=== PATIENT | female | born 1965 | race Caucasian/White ===

== ENCOUNTER 2017-12-31 10:29 | Inpatient (IN) ==
--- NOTE | 2017-12-30 21:47 | Discharge Summary ---
<Diego Urbina - Last Filed: 12/31/17 12:10> Orders not resulted at time of discharge: Pending orders 12/31/17 00:01 XR knee RT 1-2V [XR] Routine H/H [Hemoglobin and Hematocrit] [HEME] Routine Date of Encounter: 12/31/17 - Discharge Diagnosis (1) Obesity (BMI 35.0-39.9 without comorbidity) Priority: Secondary Status: Chronic (2) Arthritis of knee, right Priority: Primary Status: Chronic (3) Status post total knee replacement, right Priority: Primary Status: Acute (4) CKD (chronic kidney disease) stage 3, GFR 30-59 ml/min Priority: Secondary Status: Chronic (5) GERD (gastroesophageal reflux disease) Priority: Secondary Status: Chronic Qualifiers: Esophagitis presence: esophagitis presence not specified Qualified Code(s) : K21.9 - Gastro-esophageal reflux disease without esophagitis (6) HTN (hypertension) Priority: Secondary Status: Chronic Qualifiers: Hypertension type: essential hypertension Qualified Code(s): I10 - Essential (primary) hypertension - Hospital Course Hospital course: Ms. Reyes is a 52 year old female - Time Spent with Patient Total time spent providing and/or coordinating discharge services: - Discharge Medications Home Medications: Aspirin Enteric Coated [Aspirin EC] 325 mg PO BID #20 tablet. 12/30/17 [Rx] OxyCODONE Immed Rel [Roxicodone 5 MG] 5 mg PO Q6HR PRN 7 Days #28 tablet [Rx] BuPROPion XL (24 HR) [Wellbutrin Xl] 150 mg PO DAILY 12/31/17 [History] Ergocalciferol (VITAMIN D2) [Vitamin D2] 50,000 unit PO FR 12/31/17 [History] Losartan Potassium [Cozaar] 50 mg PO DAILY 12/31/17 [History] Omeprazole Magnesium [Prilosec Otc] 20 mg PO HS 12/31/17 [History] Allergies/Adverse Reactions: 3 Allergy/AdvReac Type Severity Reaction Status Date / Time Sulfa (Sulfonamide Allergy Hives Verified 12/31/17 11:46 Antibiotics) Primary care physician: Arcadio Welsh MD - Patient Status Disposition: Home Health Service Condition: Good - Discharge Instructions Follow Up With: Diego Urbina MD [Partnered Physician] - 01/30/18 4:50 pm Evette Devlin PAC [Physician Visual Training Aide] - 01/18/18 9:00 am Arcadio Welsh MD [Primary Care Provider] - 01/09/18 10:00 am Additional Instructions: Discharge Instructions: Total Knee Replacement Please call [facility] ([phone]), your Primary Care Physician, or report to the Emergency Room if you have any of the following symptoms: Nausea, vomiting, fever greater that 101.5, swelling, chest pain, shortness of breath, increased pain/redness/drainage/odor for your incision site, numbness/ tingling, or any other concerning symptoms. ACTIVITY:Weight-bearing as tolerated. You may progress off support (crutches or walker) as tolerated. Incentive Spirometer 10 times an hour. MEDICATIONS: Upon discharge resume your home medications. Take all the medications as prescribed. Take a stool softener if taking narcotic pain medications. Stool softeners are only effective if you drink enough fluids. Drink 6-8 glass of water or fluids a day, unless this is not allowed for another health problem. Despite using stool softeners, if you haven't had a bowel movement in 3 days, please switch to a gentle laxative. Gentle laxatives are sold over the counter. You should have a bowel movement within 24 hours, if not call the office. You will be discharged from the hospital with a prescription for pain medication. You are encouraged to decrease the use of narcotic pain medication as tolerated. Should you require a refill, please call the office. [facility] prescribes narcotic pain medication for only 4-6 weeks after surgery. If you require pain medication beyond this time period, you may be referred to your Primary Care Physician or to the Pain Clinic for further evaluation. Plan ahead for refills on pain medication as many narcotics either need to be picked up at the office or mailed. It is best to call 48-72 hours in advance of needing a prescription refill so you don't run out of medication. To help control the post-operative pain, you may take NSAIDs (Aleve,Advil, Motrin, Ibuprofen, Naprosyn) or Tylenol as prescribed on the bottle in addition to the pain medication. ANTICOAGULATION (blood thinners): Continue your Aspirin, Lovenox or Coumadin as prescribed to help prevent a blood clot in the leg or in the lungs. As long as your incision remains dry and you tolerate the NSAIDs (Aleve, Advil, Motrin, ibuprofen, naprosyn), it is OK to use the NSAIDS while you are taking your anticoagulation medication. Should your incision start to drain, stop the NSAID and contact our office. Common symptoms of blood clot in the legs include: localized pain, swelling, calf tenderness, redness or discoloration of the skin. Blood clot in the lung symptoms include: shortness of breath, rapid pulse, sweating, and chest pain that worsens with deep breathing, coughing up blood, lightheadedness, feelings of anxiety. If you experience any of these symptoms notify your physician immediately, go to the emergency room, or if having trouble breathing, call 911. WOUND CARE: Leave the dressing on for 7 to 10days. You may change the dressing if it becomes saturated greater than 50%. Do not get the dressing wet at anytime. Wash your hands with antibacterial soap, rinse and dry prior to any wound care. If you have justen the visiting nurse or rehab facility can remove the stapes 10-14 days after surgery and place steri-strips across the wound. Leave the steri-strips in place until they fall off on their won. You may let water from the shower run on top of the steri-strips. If you do not have a visiting nurse or rehab facility, you will need to return to the office at 10-14 days for the justen to be removed. If you have itching or redness around the dressing call the office. FOLLOW-UP: Please follow up with your surgeon in the orthopedic clinic in 4 weeks from the day of surgery. If you have justen that need to be removed, you will need to come back to the office in 10-14 days from the day of surgery. <Evette Devlin - Last Filed: 01/02/18 15:34> - NOTES TO OUTPATIENT PROVIDER Notes to Outpatient Provider: Acute Blood loss anemia Date of Encounter: 01/02/18 Time of Encounter: 15:29 - Discharge Diagnosis (1) Status post total knee replacement, right Priority: Primary Status: Acute Comments: Opsite dressing, leave intact until first post-operative visit. If dressing becomes >50% saturated, contact office, remove dressing and place appropriate dressing in its place. Do not allow for dressing to get wet. Zipline in place, plan to remove at post-operative day #14-16. Total Joint Precautions x 6 weeks Apply cold therapy wrap 3-6x/day for 20 minutes at a time. Encourage ambulation throughout the day Use Incentive spirometer 10x/hour. Elevate affected extremity above heart as tolerated. Brace: Wear knee immobilizer at night until first postoperative appt. (2) Arthritis of knee, right Priority: Primary Status: Chronic (3) GERD (gastroesophageal reflux disease) Priority: Secondary Status: Chronic Qualifiers: Esophagitis presence: esophagitis presence not specified Qualified Code(s) : K21.9 - Gastro-esophageal reflux disease without esophagitis (4) HTN (hypertension) Priority: Secondary Status: Chronic Qualifiers: Hypertension type: essential hypertension Qualified Code(s): I10 - Essential (primary) hypertension (5) Obesity Priority: Secondary Status: Chronic Qualifiers: Obesity type: unspecified obesity type Obesity classification: adult class 2 (BMI 35 - 39.9) Serious obesity comorbidity presence: without serious comorbidity Body mass index: BMI 36.0-36.9 Qualified Code(s): E66.9 - Obesity, unspecified; Z68.36 - Body mass index (BMI) 36.0-36.9, adult (6) CKD (chronic kidney disease) stage 3, GFR 30-59 ml/min Priority: Secondary Status: Chronic (7) Acute blood loss anemia Priority: Secondary Status: Acute Comments: asympto - Hospital Course Hospital course: Ms. Reyes is a 52 year old female status post Right TKR. Patient had uneventful postoperative course, acute blood loss anemia - asympto. Stable for discharge. Patient seen at bedside, without complaints. A&O x 3 Afebrile, vital signs stable. Vital Signs Temp Pulse Resp BP Pulse Ox 01/02/18 10:31 98.3 F 82 16 129/70 98 01/02/18 06:55 98.1 F 91 16 118/68 98 01/02/18 03:17 97.9 F 88 19 120/79 98 01/01/18 23:52 97.6 F 102 18 116/75 100 01/01/18 20:07 98.1 F 86 20 132/80 97 Intake and Output 01/01/18 01/02/18 01/02/18 23:59 07:59 15:59 Intake Total 690 / 690 360 / 360 Output Total 400 / 400 900 / 900 500 / 500 Balance 290 / 290 -900 / -900 -140 / -140 Intake: Oral 690 / 690 360 / 360 Output: Urine 400 / 400 900 / 900 500 / 500 Other: Meal Dinner Breakfast Percent of Meal Consumed 65% 100% Weight 120.9 kg Labs reviewed. H/H - stable, asymptomatic Abnormal Labs 12/31/17 01/01/18 01/01/18 15:25 01:24 01:24 Hgb 11.0 L 10.5 L Hct 35.0 L 33.5 L Sodium 134 L Glucose 170 H Calcium 8.4 L 01/02/18 01/02/18 01:54 01:54 Hgb 8.8 L D Hct 28.1 L Sodium Glucose 128 H Calcium 8.4 L Pain control: adequate Participating in PT. All questions and concerns addressed. Educated on use of incentive spirometer. Encouraged ambulation and proper hydration. Patient educated on post-operative restrictions and post-operative care. Assessment and plan: Continue with postoperative care Discharge plan: Home with HH , discharge today *HH to follow up on Anemia with repeat H/H this week. Recommend follow up with PCP. - Time Spent with Patient Total time spent providing and/or coordinating discharge services: Date of admission: 12/31 Primary care physician: Arcadio Welsh MD Discharging clinician: Evette Devlin Anticipated date of discharge: 01/02/18 - Patient Status Functional capacity at discharge: uses cane/walker Overall status at discharge: patient is progressing back to baseline
--- NOTE | 2017-12-31 09:11 | Anesthesia Evaluation PreOp ---
Date of Encounter: 12/31/17 Time of Encounter: 11:21 - Past History Planned Operation: Right Total Knee Arthroplasty Cardiac History: HTN Pulmonary History: Denies Any Significant HX NET DEVELOPMENT MANAGER History: Denies Any Significant HX Other Medical History: GERD Anesthesia History: No Prior Anesthetic Complications, Past Anesthesia Alcohol Use: none Drug use: none Medications and Allergies Lisinopril 03/25/17 [History] Wellbutrin 03/25/17 [History] Aspirin Enteric Coated [Aspirin EC] 325 mg PO BID #20 tablet.dr 12/30/17 [Rx] OxyCODONE Immed Rel [Roxicodone 5 MG] 5 mg PO Q6HR PRN 7 Days #28 tablet [Rx] 3 Allergy/AdvReac Type Severity Reaction Status Date / Time Sulfa (Sulfonamide Allergy Hives Verified 12/18/17 11:28 Antibiotics) - Meds/Allergy Pre-op Review Medications Reviewed: Yes Allergies Reviewed: Yes Beta Blockers on Current Med List: No Anesthesia Results - Labs Laboratory Tests 12/18/17 12/18/17 12/18/17 11:45 11:45 11:45 WBC 6.2 Hgb 12.9 Hct 40.7 Plt Count 395 PT 12.1 INR 1.1 APTT 35.0 Sodium 136 Potassium 3.9 BUN 13 Creatinine 1.15 - Imaging EKG: report reviewed (03/09/2017 SINUS RHYTHM NONSPECIFIC T-WAVE ABNORMALITY) Anesthesia Exam O2 Sat Height 1.78 m Height 1.78 m Height 1.78 m Height 1.68 m Weight 115.666 kg Weight 115.666 kg Weight 115.666 kg Weight 115.666 kg O2 Sat by Pulse Oximetry 99 Vital Signs Temp Pulse Resp BP Pulse Ox 97.9 F 88 18 135/88 99 12/31/17 10:56 12/31/17 10:56 12/31/17 10:56 12/31/17 10:56 12/31/17 10:56 Height: 5'10" Weight: 255 lbs NPO (# of Hours): 8 Pain Scale: 0 Pain Scale Used: Numeric (1 - 10) - HEENT Pupil (Motor): EOMI Mallampati: III Teeth: Normal, Prosthesis (implant right lower molar) Oral Opening: Greater than 3 - NET DEVELOPMENT MANAGER LOC: Oriented NET DEVELOPMENT MANAGER Motor: Normal RUE, Normal LUE, Normal RLE, Normal LLE, Normal Face NET DEVELOPMENT MANAGER Sensory: Normal: RUE, LUE, RLE, LLE, Face - Cardiac Rhythm: Regular Murmur: None - Pulmonary Breath Sounds: bilateral Clear Respiratory Effort: Symmetrical Anesthesia Assess/Plan ASA Score: 2 Modified Millstone Scale for Level of Consciousness: Cooperative, oriented, and tranquil Anesthetic Plan: General, Regional Monitoring Plan: Standard Monitors Recovery Plan: PACU
[2017-12-31] MEDS ORDERED: CeFAZolin Syr 2,000MG/20 ML 2,000 MG/20 ML SYRINGE IVPB ONE (10:47)
--- NOTE | 2017-12-31 10:54 | History & Physical Report ---
Date of Encounter: 12/31/17 Time of Encounter: 10:54 24 Hour HP Update - Instructions Instructions: If the History and Physical is less than 30 days old and was completed prior to A.M. admission and or procedure and has NOT been updated on calendar day of procedure please complete this update prior to performing procedure. - Update Patient reports changes in Medical Condition: No Changes in examination, assessment, or condition: No Changes in Medication: No Preop tests/diagnostics Reviewed: Yes Surgery Remains Indicated: Yes Consent for Planned Operative Procedure(s) Verified: Yes - Pre-Operative Checklist Preoperative Checklist Indicated: No Prophylactic Antibiotic Ordered: Yes Is VTE Prophylaxis Indicated?: Yes
[2017-12-31] MEDS ORDERED: Ringers Solution, Lactated 1,000 ML IVC SCH ×2 (11:00→15:59)
--- NOTE | 2017-12-31 11:09 | History & Physical Report ---
Date of Encounter: 12/31/17 Time of Encounter: 11:09 24 Hour HP Update - Instructions Instructions: If the History and Physical is less than 30 days old and was completed prior to A.M. admission and or procedure and has NOT been updated on calendar day of procedure please complete this update prior to performing procedure. - Update Patient reports changes in Medical Condition: No Changes in examination, assessment, or condition: No Changes in Medication: No Preop tests/diagnostics Reviewed: Yes Surgery Remains Indicated: Yes Consent for Planned Operative Procedure(s) Verified: Yes - Pre-Operative Checklist Preoperative Checklist Indicated: No Prophylactic Antibiotic Ordered: Yes Is VTE Prophylaxis Indicated?: Yes
[2017-12-31] MEDS ORDERED: *HR* FentaNYL (PF) 100 MCG/2 ML VIAL ONE ×2 (11:23→13:41)
[2017-12-31] MEDS ORDERED: *HR* Propofol 200 MG/20 ML VIAL IVP ONE (11:24)
[2017-12-31] MEDS ORDERED: *HR* Midazolam HCl 2 MG/2 ML VIAL ONE (11:24)
[2017-12-31] MEDS ORDERED: Lidocaine -MPF 2% 2 ML VIAL ONE (11:40)
[2017-12-31] MEDS ORDERED: Bupivacaine/Clonidine Syringe 1 EACH SYRINGE ONE (12:20)
[2017-12-31] MEDS ORDERED: ROPIVACAINE HCL/PF 0.5% 30 ML VIAL ONE (12:20)
--- NOTE | 2017-12-31 12:43 | Anesthesia Procedures ---
Date of Encounter: 12/31/17 Time of Encounter: 12:41 Procedures: Anesthesia - Nerve Block Procedure Date: 12/31/17 Time: 12:41 Pre-op Diagnosis: arthris knee Surgical Procedure: TKA R Checklist: Correct Patient Identifier Correct side: Right Blood Thinner: No Monitor Applied: EKG, BP, Pulse Oximetry Supplemental Oxygen via Nasal Cannula (L/min): 3 Sedation: Versed (mg): 2 Sedation: Fentanyl (mcg): 100 Indication: Post Op Analgesia Pre-op Neuro Deficits: No Block Type: Other (adductor, IPAK) Catheter placed: No Sterile Technique: Yes Ultrasound used: Yes Anatomy identified: Yes Visual spread of Local: Yes Neuro Stimulation: No Blood on Needle Aspiration: No Smooth Injection of Local: Yes Pain with Injection of Local: No Prep: Chlorhexadine Needle: 21 x 100 mm Stimuplex Local: 0.25% Bupivicaine w/Clonidine 20 mcg/cc, Ropivacaine (o.5% 30cc) Volume (cc): 20 30 Number of Attempts: 1 Complications: None/effective block Vitals: Vital Signs/O2 Sat, Most Current Temp Pulse Resp BP Pulse Ox 97.9 F 81 16 127/86 98 12/31/17 10:56 12/31/17 12:34 12/31/17 12:34 12/31/17 12:34 12/31/17 12:34 Comments: aseptic, robert well, VSS
[2017-12-31] MEDS ORDERED: Ethanol\\Acetic Acid\\Na Ace\\Ben 1,000 ML IRRIG.SOLN IR ONE (12:52)
[2017-12-31] MEDS ORDERED: Acetaminophen IV 1,000 MG/100 ML INFUS..BTL ONE (12:54)
[2017-12-31] MEDS ORDERED: *HR* Promethazine 25 MG/ML VIAL IVP PRN (12:58)
[2017-12-31] MEDS ORDERED: *HR* OxyCODONE Immed Rel 5 MG TABLET PO PRN (12:58)
[2017-12-31] MEDS ORDERED: *HR* Labetalol 20 MG/4 ML SYRINGE IVP PRN (12:58)
[2017-12-31] MEDS ORDERED: *HR* HYDROmorphone 2 MG TABLET PO PRN (12:58)
[2017-12-31] MEDS ORDERED: *HR* PHENYLEPHRINE 1,000 MCG/10 ML SYRINGE IVP ONE (13:30)
[2017-12-31] MEDS ORDERED: Ondansetron 4 MG/2 ML VIAL ONE (13:33)
[2017-12-31] MEDS ORDERED: Ketorolac 30 MG/ML VIAL ONE (13:33)
[2017-12-31] MEDS ORDERED: Dexamethasone 4 MG/ML VIAL ONE (13:33)
[2017-12-31] MEDS ORDERED: EPHEDrine 50 MG/ML VIAL ONE (13:45)
--- NOTE | 2017-12-31 14:16 | Orthopedic Operative Note ---
Date of procedure: 12/31/17 Pre-op diagnosis: Right total knee arthritis Post-op diagnosis: same Procedure: Procedure: Right robotic-assisted Total knee replacement Estimated blood loss: 200 cc Hardware: Metal and polyethylene replacement. Malinda Femur: 3 Tibia:4 TS insert: 13 Patella: 36 Exam Under anesthesia: 2 degree flexion contracture 9 degrees varus as calculated by the robot full flexion and no instability Procedural Notes: Grade 4 arthritic changes all 3 compartments. Operative procedure: The patient was brought to the operating room and placed on the operating room table. After general anesthesia was administered the operative knee was examined. Findings were noted in the exam under anesthesia. The operative extremity was prepped and draped in sterile surgical fashion. The patient received IV antibiotics prior to skin incision. A standard midline incision was made centered over the patella. The incision was made through the skin and subcutaneous tissue. A medial parapatellar tendon approach was performed. Care was taken to preserve tissue along the medial aspect of the patella. And to protect the patella tendon. The deep MCL was released off the medial tibia. The infra patella fat pad was excised. The patella was everted and cut was made at the level of the insertion of the quadriceps and patella tendon. The patella was sized the guide was seated and the lug holes are drilled. Knee was brought into flexion. Patient noted to have grade 4 arthritic changes all 3 compartments. Steinmann pins were placed in the tibia and the femur for the tibial and femoral arrays respectively. Checkpoints were also placed in the tibia and the femur for calculation purposes. The knee including the femur and the tibial registered. Osteophytes, ACL and PCL were excised at this point. Extension and flexion were assessed with a valgus stress components were adjusted on the computer to balance the knee. Femoral cuts were made first with robotic assistance, these included the anterior cut posterior cuts chamfer cuts. Tibial cut was then performed with robotic assistance as well. Bone fragments were removed, as well as the medial and lateral meniscus. The size 3 femoral guide was seated box cut was made lug holes are drilled. The size 4 tibial tray was seated and prepared with the fin cutter. Trial reduction with the 13 TS Rita revealed extension of 0 degree and 5 degree varus full flexion. No varus valgus instability. Trial reduction revealed excellent patella tracking. All trial components were removed all bony surfaces were irrigated. The Tibia was seated followed by the femur, The selected Rita size was seated and secured patella. Patient had similar findings for motion and stability. The knee was closed by the PA. The knee was then irrigated out with 2 L of pulse irrigation. The extensor mechanism was closed with #2 FiberWire suture and #2 PDS suture. The subcutaneous tissue was then irrigated and closed deep with #1 PDS suture superficially with 0 PDS suture and skin was closed with zip tie The patient was then placed in a sterile dressing and a postoperative brace extubated and transferred to recovery room in stable condition. Anesthesia: GETA Surgeon: Diego Urbina Was there an medical assistant present: No Estimated blood loss (cc): 200 Condition: stable Disposition: PACU
[2017-12-31] MEDS: *HR* HYDROmorphone (PF) 1 MG/ML SYRINGE IVP PRN ×4 (14:51→15:15)
--- NOTE | 2017-12-31 15:33 | Anesthesia Evaluation Post Op ---
Date of Encounter: 12/31/17 Time of Encounter: 15:32 - Vital Signs Vital Signs: Vital Signs/O2 Sat/Glucose, Most Current Temp Pulse Resp BP Pulse Ox 12/31/17 15:27 80 14 133/66 95 12/31/17 15:17 97.8 F 67 20 120/77 95 12/31/17 15:07 79 20 119/71 96 12/31/17 14:57 70 20 110/69 92 12/31/17 14:47 97.2 F L 81 22 116/80 95 12/31/17 12:57 90 16 122/78 99 12/31/17 12:44 82 16 119/76 99 12/31/17 12:34 81 16 127/86 98 12/31/17 12:22 80 18 142/101 99 - Lungs Lungs: Clear Ascult./Percussion - Airway Airway: Non-obstructed - Cardiovascular Regular Rate, Baseline Rhythm - Mental Status Mental Status: Alert & Oriented, Answers Appropriately - Pain Pain Scale: 4 Pain Scale used: Numeric (1 - 10) - Nausea Vomiting Nausea Vomiting: Not Present - Hydration Hydration: Ice chips, Able to void - Discharge PostOp Status: Transfer Patient to floor
[2017-12-31] MEDS ORDERED: MOM Conc 10 ML UD.LIQ PO PRN (15:59)
[2017-12-31] MEDS ORDERED: Naloxone 0.4 MG/ML INJ IVP PRN (15:59)
[2017-12-31] MEDS ORDERED: *HR* OxyCODONE/APAP 5/325 TABLET PO PRN (15:59)
[2017-12-31] MEDS ORDERED: Ondansetron 4 MG/2 ML VIAL IVP PRN (15:59)
[2017-12-31] MEDS ORDERED: Sennosides 8.6 MG TABLET PO PRN (15:59)
[2017-12-31] MEDS ORDERED: Temazepam 15 MG CAPSULE PO PRN (15:59)
[2017-12-31] MEDS ORDERED: traMADol 50 MG TABLET PO PRN (15:59)
[2017-12-31] MEDS: *HR* Enoxaparin 30 MG/0.3 ML SYRINGE SQ SCH (17:10)
[2017-12-31] MEDS ORDERED: *HR* Enoxaparin 30 MG/0.3 ML SYRINGE SQ SCH (18:00)
[2018-01-01 01:53] LABS: Hematocrit 33.5 % (35.3-44.9); Hemoglobin 10.5 g/dL (11.5-15.4)
[2018-01-01 02:16] LABS: BUN/Creatinine Ratio 15 (6-26); Blood Urea Nitrogen 14 mg/dL (6-20); Calcium 8.4 mg/dL (8.6-10.3); Carbon Dioxide 23 mEq/L (23-29); Chloride 102 mEq/L (98-107); Glucose 170 mg/dL (70-105); Osmolality,Calculated 282 (280-300); Potassium 4.7 mEq/L (3.5-5.1); Sodium 134 mEq/L (136-145); eGFR For Non-African Americans > 60 (> 60)
[2018-01-01] MEDS: *HR* OxyCODONE Immed Rel 5 MG TABLET PO PRN ×5 (05:15→22:40)
[2018-01-01] MEDS: *HR* Enoxaparin 30 MG/0.3 ML SYRINGE SQ SCH ×2 (05:15→18:32)
--- NOTE | 2018-01-01 06:43 | Orthopedics Progress Note ---
Date of Encounter: 01/01/18 Time of Encounter: 06:43 - Assessment and Plan (1) Obesity (BMI 35.0-39.9 without comorbidity) Current Visit: Yes Status: Chronic (2) Arthritis of knee, right Current Visit: No Status: Chronic (3) Status post total knee replacement, right Current Visit: No Status: Acute (4) CKD (chronic kidney disease) stage 3, GFR 30-59 ml/min Current Visit: No Status: Chronic (5) GERD (gastroesophageal reflux disease) Current Visit: No Status: Chronic Qualifiers: Esophagitis presence: esophagitis presence not specified Qualified Code(s) : K21.9 - Gastro-esophageal reflux disease without esophagitis (6) HTN (hypertension) Current Visit: No Status: Chronic Qualifiers: Hypertension type: essential hypertension Qualified Code(s): I10 - Essential (primary) hypertension Subjective Interval history: Patient was seen this morning doing well without complaints. Afebrile vital signs stable. Operative extremity: Neurovascularly intact Dressing clean dry and intact Calves nontender Assessment and plan: Continue with postoperative care Hematocrit 33 Objective Vital signs: Vital Signs Temp Pulse Resp BP Pulse Ox 01/01/18 03:58 97.3 F L 92 16 126/80 98 12/31/17 23:50 97.6 F 74 16 108/75 99 12/31/17 20:50 98 12/31/17 18:59 97.7 F 88 16 117/74 98 12/31/17 18:10 97.7 F 88 16 128/83 93 12/31/17 17:10 97.8 F 93 16 126/86 98 12/31/17 16:40 97.8 F 73 18 116/74 97 12/31/17 15:54 97.5 F L 71 18 142/85 99 12/31/17 15:27 97.8 F 80 14 133/66 95 12/31/17 15:17 97.8 F 67 20 120/77 95 12/31/17 15:07 79 20 119/71 96 12/31/17 14:57 70 20 110/69 92 12/31/17 14:47 97.2 F L 81 22 116/80 95 12/31/17 12:57 90 16 122/78 99 12/31/17 12:44 82 16 119/76 99 12/31/17 12:34 81 16 127/86 98 12/31/17 12:22 80 18 142/101 99 12/31/17 10:56 97.9 F 88 18 135/88 99 Intake and Output 12/31/17 12/31/17 01/01/18 15:59 23:59 07:59 Intake Total 20 / 20 340 / 340 100 / 100 Output Total 200 / 200 300 / 300 Balance -180 / -180 40 / 40 100 / 100 Intake: IV Fluids 20 / 20 100 / 100 100 / 100 Ancef Syringe 2,000 MG/20 ML 2, 20 / 20 000 mg In 20 ml @ 200 mls/hr IVPB PREOP ONE Rx#:[id number] Ancef 2,000 MG In 0.9 % Sodium 100 / 100 100 / 100 Chloride 100 ML @ 200 mls/hr IVPB Q8H [facility] Rx#:[id number] Oral 240 / 240 Output: Urine 300 / 300 Estimated Blood Loss 200 / 200 Other: Meal Dinner Percent of Meal Consumed 100% Weight 115.666 kg 120.8 kg Patient Weight 01/01/18 23:59 Weight 120.8 kg - Labs CBC & BMP: 01/01/18 01:24 01/01/18 01:24 Labs: Abnormal lab results Hgb 10.5 g/dL (11.5-15.4) L 01/01/18 01:24 Hct 33.5 % (35.3-44.9) L 01/01/18 01:24 Sodium 134 mEq/L (136-145) L 01/01/18 01:24 Glucose 170 mg/dL (70-105) H 01/01/18 01:24 Calcium 8.4 mg/dL (8.6-10.3) L 01/01/18 01:24 - VTE Documentation of Mechanical Device: Venous foot pump, device Consult Discharge Plan - Plan Referrals: Arcadio Welsh MD [Primary Care Provider] -
[2018-01-01] MEDS: BuPROPion XL (24 HR) 150 MG TABLET PO SCH (09:26)
--- NOTE | 2018-01-01 16:39 | Event Note ---
Date of Encounter: 01/01/18 Time of Encounter: 16:37 PCR - POD#1 - Right TKR Robo 12/31 Patient seen at bedside, without complaints. A&O x 3 Afebrile, vital signs stable. Labs reviewed. H/H - stable, asymptomatic Pain control: adequate Participating in PT. All questions and concerns addressed. Educated on use of incentive spirometer. Encouraged ambulation and proper hydration. Patient educated on post-operative restrictions and post-operative care. Assessment and plan: Continue with postoperative care Discharge plan: Home in AM with Short CBC 01/01/18 Range/Units 01:24 Hgb 10.5 L (11.5-15.4) g/dL Hct 33.5 L (35.3-44.9) % BMP 01/01/18 Range/Units 01:24 Sodium 134 L (136-145) mEq/L Potassium 4.7 (3.5-5.1) mEq/L Chloride 102 (98-107) mEq/L Carbon Dioxide 23 (23-29) mEq/L BUN 14 (6-20) mg/dL Creatinine 0.95 (0.60-1.20) mg/dL Glucose 170 H (70-105) mg/dL Calcium 8.4 L (8.6-10.3) mg/dL Vital Signs Temp Pulse Resp BP Pulse Ox 01/01/18 15:11 98.0 F 88 16 119/79 100 01/01/18 11:09 98.0 F 82 18 121/78 100 01/01/18 07:35 97.9 F 76 17 120/79 100 01/01/18 03:58 97.3 F L 92 16 126/80 98 12/31/17 23:50 97.6 F 74 16 108/75 99 12/31/17 20:50 98 12/31/17 18:59 97.7 F 88 16 117/74 98 12/31/17 18:10 97.7 F 88 16 128/83 93 12/31/17 17:10 97.8 F 93 16 126/86 98 12/31/17 16:40 97.8 F 73 18 116/74 97 Intake and Output 01/01/18 01/01/18 01/01/18 07:59 15:59 23:59 Intake Total 100 / 100 Balance 100 / 100 Intake: IV Fluids 100 / 100 Ancef 2,000 MG In 0.9 % Sodium 100 / 100 Chloride 100 ML @ 200 mls/hr IVPB Q8H [facility] Rx#:[id number] Other: Weight 120.8 kg Patient Weight 01/01/18 23:59 Weight 120.8 kg .
--- NOTE | 2018-01-01 16:47 | Physician Discharge Referral ---
Home Health/Hosp Referral Info Transfer to: Home Health Provider in Charge Post Discharge: PCP - Diagnosis (1) Status post total knee replacement, right Priority: Primary Status: Acute (2) Arthritis of knee, right Priority: Primary Status: Chronic (3) GERD (gastroesophageal reflux disease) Status: Chronic (4) HTN (hypertension) Status: Chronic (5) Obesity Status: Chronic (6) CKD (chronic kidney disease) Status: Chronic (7) CKD (chronic kidney disease) stage 3, GFR 30-59 ml/min Status: Chronic - Respiratory Orders None Smoking Cessation: Smoking cessation has been advised. For more information, call the [place] Tobacco Quit Line at 1-824-DQRL-NOW. - Diet/Nutrition Diet/Nutrition Orders: Regular - Activity Activity Orders: Up ad francisco, Ambulate, Walker - Services Needed Following services are medically necessary services: Nursing, Home Health Aide, Physical Therapy, Occupational Therapy Home Care Orders: Opsite dressing, leave intact until first post-operative visit. If dressing becomes >50% saturated, contact office, remove dressing and place appropriate dressing in its place. Do not allow for dressing to get wet[facility] to [facility] at post-operative day #14-16. Total Joint Precautions x 6 weeks Apply cold therapy wrap 3-6x/day for 20 minutes at a time. Encourage ambulation throughout the day Use Incentive spirometer 10x/hour. Elevate affected extremity above heart as tolerated. Brace: Wear knee immobilizer at night until first post-operative appt. ~ - Transfer Medications Home Medications: Aspirin Enteric Coated [Aspirin EC] 325 mg PO BID #20 tablet. 12/30/17 [Rx] OxyCODONE Immed Rel [Roxicodone 5 MG] 5 mg PO Q6HR PRN 7 Days #28 tablet [Rx] BuPROPion XL (24 HR) [Wellbutrin XL] 150 mg PO DAILY 12/31/17 [History] Ergocalciferol (VITAMIN D2) [Vitamin D2] 50,000 unit PO FR 12/31/17 [History] Losartan Potassium [Cozaar] 50 mg PO DAILY 12/31/17 [History] Omeprazole Magnesium [Prilosec Otc] 20 mg PO HS 12/31/17 [History] Allergies/Adverse Reactions: 3 Allergy/AdvReac Type Severity Reaction Status Date / Time Sulfa (Sulfonamide Allergy Hives Verified 12/31/17 11:46 Antibiotics) Certification: Further, I certify that my clinical findings support that this patient is homebound (i.e. absences from home require considerable and taxing effort and are for medical reasons or [employer] services or infrequently or short duration when for other reasons) because: Homebound Reason: Absences from home are contraindicated except to recieve medical care, Post-surgery restriction and or conditions limit ability to leave home Attestation: My signature below is to certify that this patient is under my care and that I, or nurse practitioner, or a physician's pharmacist assistant working with me, has a face-to -face encounter with this patient.
[2018-01-02 02:24] LABS: Hematocrit 28.1 % (35.3-44.9)
[2018-01-02 02:29] LABS: Hemoglobin 8.8 g/dL (11.5-15.4)
[2018-01-02 02:47] LABS: BUN/Creatinine Ratio 13 (6-26); Blood Urea Nitrogen 13 mg/dL (6-20); Calcium 8.4 mg/dL (8.6-10.3); Carbon Dioxide 27 mEq/L (23-29); Chloride 101 mEq/L (98-107); Glucose 128 mg/dL (70-105); Osmolality,Calculated 284 (280-300); Potassium 3.9 mEq/L (3.5-5.1); Sodium 136 mEq/L (136-145); eGFR For Non-African Americans > 60 (> 60)
[2018-01-02] MEDS: *HR* Enoxaparin 30 MG/0.3 ML SYRINGE SQ SCH (05:34)
[2018-01-02] MEDS: *HR* OxyCODONE Immed Rel 5 MG TABLET PO PRN ×2 (05:36→10:41)
--- NOTE | 2018-01-02 07:53 | Orthopedics Progress Note ---
Date of Encounter: 01/02/18 Time of Encounter: 07:52 - Assessment and Plan (1) Obesity (BMI 35.0-39.9 without comorbidity) Current Visit: Yes Status: Chronic (2) Arthritis of knee, right Current Visit: No Status: Chronic (3) Status post total knee replacement, right Current Visit: No Status: Acute (4) CKD (chronic kidney disease) stage 3, GFR 30-59 ml/min Current Visit: No Status: Chronic (5) GERD (gastroesophageal reflux disease) Current Visit: No Status: Chronic Qualifiers: Esophagitis presence: esophagitis presence not specified Qualified Code(s) : K21.9 - Gastro-esophageal reflux disease without esophagitis (6) HTN (hypertension) Current Visit: No Status: Chronic Qualifiers: Hypertension type: essential hypertension Qualified Code(s): I10 - Essential (primary) hypertension (7) Acute blood loss anemia Current Visit: Yes Status: Acute Subjective Interval history: Patient was seen this morning doing well without complaints. Afebrile vital signs stable. Operative extremity: Neurovascularly intact Dressing clean dry and intact Calves nontender Assessment and plan: Continue with postoperative care hb 8.8 Objective Vital signs: Vital Signs Temp Pulse Resp BP Pulse Ox 01/02/18 06:55 98.1 F 91 16 118/68 98 01/02/18 03:17 97.9 F 88 19 120/79 98 01/01/18 23:52 97.6 F 102 18 116/75 100 01/01/18 20:07 98.1 F 86 20 132/80 97 01/01/18 15:11 98.0 F 88 16 119/79 100 01/01/18 11:09 98.0 F 82 18 121/78 100 Intake and Output 01/01/18 01/01/18 01/02/18 15:59 23:59 07:59 Intake Total 690 / 690 Output Total 400 / 400 400 / 400 900 / 900 Balance -400 / -400 290 / 290 -900 / -900 Intake: Oral 690 / 690 Output: Urine 400 / 400 400 / 400 900 / 900 Other: Meal Dinner Percent of Meal Consumed 65% Weight 120.9 kg - Labs CBC & BMP: 01/02/18 01:54 01/02/18 01:54 Labs: Abnormal lab results Hgb 8.8 g/dL (11.5-15.4) L D 01/02/18 01:54 Hct 28.1 % (35.3-44.9) L 01/02/18 01:54 Glucose 128 mg/dL (70-105) H 01/02/18 01:54 Calcium 8.4 mg/dL (8.6-10.3) L 01/02/18 01:54 - VTE Documentation of Mechanical Device: Venous foot pump, device Consult Discharge Plan - Plan Referrals: rAcadio Welsh MD [Primary Care Provider] -
[2018-01-02] MEDS: BuPROPion XL (24 HR) 150 MG TABLET PO SCH (08:01)
[2018-01-02 10:40] VITALS: BP 129/70
== END 2018-01-02 13:08 | disposition home health service (06) | DRG 470 ==
LOC: SAMDAY 10:29 → 3NENU 15:39
PROVIDERS: ADMIT Orthopaedic Surgery; ATTEND Orthopaedic Surgery

== ENCOUNTER 2019-02-03 06:26 | Inpatient (IN) ==
[~2019-02-03 06:26] MED LIST: Total Joint Mixture (50 ml) IR ONE
[2019-02-03] MEDS ORDERED: Ethanol\\Acetic Acid\\Na Ace\\Ben 1,000 ML IRRIG.SOLN IR ONE (07:08)
[2019-02-03] MEDS ORDERED: *HR* Propofol 200 MG/20 ML VIAL IVP ONE (07:09)
[2019-02-03] MEDS ORDERED: Ondansetron 4 MG/2 ML VIAL ONE (07:09)
[2019-02-03] MEDS ORDERED: *HR* Midazolam HCl 2 MG/2 ML VIAL ONE (07:09)
[2019-02-03] MEDS ORDERED: Lidocaine -MPF 2% 2 ML VIAL ONE (07:09)
[2019-02-03] MEDS ORDERED: Dexamethasone 4 MG/ML VIAL ONE (07:09)
[2019-02-03] MEDS ORDERED: *HR* FentaNYL (PF) 100 MCG/2 ML VIAL ONE ×2 (07:09→09:04)
[2019-02-03] MEDS ORDERED: CeFAZolin Syr 2,000MG/20 ML 2,000 MG/20 ML SYRINGE IVPB ONE (07:10)
[2019-02-03] MEDS ORDERED: Tranexamic Acid 1,000 MG/10 ML VIAL ONE (07:10)
[2019-02-03] MEDS ORDERED: Lidocaine HCL 4 ML Topical Solution (Laryng-O-Jet Kit Sterile Pak) TP ONE (07:10)
[2019-02-03] MEDS ORDERED: *HR* Succinylcholine 200 MG/10 ML VIAL IVP ONE (07:10)
[2019-02-03] MEDS ORDERED: *HR* Rocuronium Bromide 50 MG/5 ML VIAL ONE (07:10)
[2019-02-03] MEDS ORDERED: *HR* Phenylephrine 10 MG/ML VIAL ONE (07:14)
[2019-02-03] MEDS ORDERED: Ringers Solution, Lactated 1,000 ML IVC SCH ×2 (07:15→11:20)
[2019-02-03] MEDS ORDERED: ROPIVACAINE/PF/NS 0.25% 1 EACH SYRINGE INTRAART ONE ×2 (07:34→07:53)
[2019-02-03] MEDS ORDERED: Famotidine 20 MG/2 ML VIAL IVP ONE (07:44)
[2019-02-03] MEDS ORDERED: traMADol 50 MG TABLET PO ONE (07:45)
[2019-02-03] MEDS ORDERED: Gabapentin 300 MG CAPSULE PO ONE (07:45)
[2019-02-03] MEDS ORDERED: Acetaminophen IV 1,000 MG/100 ML INFUS..BTL IVPB ONE (07:45)
[2019-02-03] MEDS ORDERED: EPHEDrine 50 MG/ML VIAL ONE (08:58)
[2019-02-03] MEDS ORDERED: *HR* OxyCODONE Immed Rel 5 MG TABLET PO PRN (10:03)
[2019-02-03] MEDS ORDERED: Ondansetron 4 MG/2 ML VIAL IVP ONE (10:03)
[2019-02-03 11:04] LABS: Hematocrit 36.8 % (35.3-44.9); Hemoglobin 12.4 g/dL (11.5-15.4)
[2019-02-03] MEDS ORDERED: Ondansetron 4 MG/2 ML VIAL IVP PRN (11:20)
[2019-02-03] MEDS ORDERED: Naloxone 0.4 MG/ML INJ IVP PRN (11:20)
[2019-02-03] MEDS ORDERED: *HR* Promethazine 25 MG/ML VIAL IVP PRN (11:20)
[2019-02-03] MEDS ORDERED: MOM Conc 10 ML UD.LIQ PO PRN (11:20)
[2019-02-03] MEDS ORDERED: Sennosides 8.6 MG TABLET PO PRN (11:20)
[2019-02-03] MEDS ORDERED: HYDROcodone BIT/Homatropine 5 MG TABLET PO PRN (11:20)
[2019-02-03] MEDS ORDERED: Temazepam 15 MG CAPSULE PO PRN (11:20)
[2019-02-03] MEDS ORDERED: traMADol 50 MG TABLET PO PRN (11:20)
[2019-02-03] MEDS: Multivit/Ca/Min/Fe/FA 1 TAB TABLET PO SCH (12:48)
[2019-02-03] MEDS: BuPROPion XL (24 HR) 150 MG TABLET PO SCH (12:48)
[2019-02-03] MEDS: Ascorbic Acid 500 MG TABLET PO SCH ×2 (12:48→16:32)
[2019-02-03] MEDS: *HR* OxyCODONE Immed Rel 5 MG TABLET PO PRN (16:34)
[2019-02-04] MEDS: *HR* OxyCODONE Immed Rel 5 MG TABLET PO PRN ×2 (00:41→11:57)
[2019-02-04 02:03] LABS: Basophils % 0.3 %; Hematocrit 36.2 % (35.3-44.9); Hemoglobin 11.5 g/dL (11.5-15.4); Immature Granulocytes % 0.3 % (0-4); Lymphocytes # 0.7 K/mcL (0.6-4.6); Lymphocytes % 5.6 %; Mean Corpuscular HGB Conc 31.8 g/dL (31.6-35.5); Mean Corpuscular Volume 91.2 fL (83.0-100.0); Mean Platelet Volume 10.9 fL (9.4-12.4); Monocytes # 0.8 K/mcL (0.0-1.3); Monocytes % 6.3 %; Neutrophils # 10.5 K/mcL (1.6-8.9); Platelet Count 319 K/mcL (140-400); Red Blood Count 3.97 M/mcL (3.82-4.97); Segmented Neutrophils % 87.5 %
[2019-02-04 02:21] LABS: Calcium 8.3 mg/dL (8.6-10.3); Potassium 4.1 mEq/L (3.5-5.1)
[2019-02-04] MEDS ORDERED: *HR* Enoxaparin 30 MG/0.3 ML SYRINGE SQ SCH ×2 (07:44)
[2019-02-04] MEDS: Ascorbic Acid 500 MG TABLET PO SCH (08:25)
[2019-02-04] MEDS: BuPROPion XL (24 HR) 150 MG TABLET PO SCH (08:25)
[2019-02-04] MEDS: Multivit/Ca/Min/Fe/FA 1 TAB TABLET PO SCH (08:25)
[2019-02-04 11:58] VITALS: BP 109/72
[2019-02-08] MEDS ORDERED: Ergocalciferol (VIT D2) 50,000 UNIT (1.25MG) CAP PO SCH (09:00)
== END 2019-02-04 12:15 | disposition home health service (06) | DRG 470 ==
LOC: SAMDAY 06:26 → 3NENU 11:19
PROVIDERS: ADMIT Orthopaedic Surgery; ATTEND Orthopaedic Surgery